=== PATIENT | female | born 1965 | race Caucasian/White ===

== ENCOUNTER 2025-04-24 08:15 | Day surgery (SDC) | payer MEDICARE, OTHER ==
[~2025-04-24] VITALS: Ht 167.6 cm; Wt 73.0 kg
[~2025-04-24 08:15] MED LIST: ALDACTONE25 MG PO; BACLOFEN10 MG PO; IBLOOD GLUCOSE TEST STRIP 1 EA TEST VI PRN; LACTATED RINGER'S 1,000 ML IV SCH; LIDOCAINE HCL 1% 5 ML SDV INJ ONE; LINZESS290 MCG PO; LIPITOR40 MG PO; NITROSTAT0.4 MG SL; OMEPRAZOLE20 MG PO; OXYBUTYNIN CHLOR5 MG PO; PROAIR RESPICL90 MCG INH; PROPRANOLOL HC160 MG PO; TRAZODONE HCL50 MG PO; TRELEGY ELLIPT1 EACH INH
[2025-04-24 08:57] VITALS: BP 127/77
[2025-04-24 09:16] LABS: BASOPHILS 0.4 % (0.1-1.2); EOSINOPHILS 2.1 % (0.7-5.8); LYMPHOCYTES 26.6 % (19.3-51.7); MCH 31.1 PG (25.6-32.2); MCHC 33.4 g/dL (32.2-35.5); MCV 93.2 fL (79.4-94.8); MONOCYTES 7.3 % (4.7-12.5); NEUTROPHILS 63.4 % (34.0-71.1); RBC 4.69 M/uL (3.93-5.22)
[2025-04-24] MEDS ORDERED: LIDOCAINE HCL 2% 5 ML SDV ONE (09:24)
[2025-04-24] MEDS ORDERED: fentaNYL citrate 100 MCG/2 ML VIAL ONE (09:24)
[2025-04-24] MEDS ORDERED: DEXAMETHASONE SOD PHOS 4 MG/ML VIAL ONE (09:24)
[2025-04-24 09:34] LABS: ALT (SGPT) 19.0 U/L (14-59); AST (SGOT) 16.0 U/L (15-37); GLOMERULAR FILTRATION RATE,EST 68.0 mL/min (>60); PROTEIN, TOTAL 7.3 g/dL (6.4-8.2); UREA NITROGEN 14.0 mg/dL (7-18)
[2025-04-24] MEDS ORDERED: LIDOCAINE 1% W/ EPI 1:100,000 20 ML MDV ONE (10:31)
--- NOTE | 2025-04-24 11:15 | NUR ---
04/24/25 1115 Yissel Guan LE 1105: PT ARRIVES TO PACU. REPROT RECEIEVED FROM ACCOUNTING PRACTICE MANAGER AND CHILD NURSE. LE 1106: PT'S ORAL AIRWAY IS REMOVED.
[2025-04-24 11:33] VITALS: BP 128/78
--- NOTE | 2025-04-24 11:37 | NUR ---
PT BACK TO ROOM FROM PACU ON RA. RECEIVED REPORT FROM TRUPTI SAINI. PT IS AWAWE. DENIES PAIN. NO DRAINAGE NOTED. PT DRINKING WATER AND EATING PUDDING. DAUGHTER AT BEDSIDE. NO OTHER NEEDS AT THIS TIME. CALL LIGHT WITHIN REACH.
[2025-04-24 12:28] VITALS: BP 115/71
[2025-04-24] MEDS ORDERED: ACETAMINOPHEN 1,000 MG/100 ML VIAL IV ONE (12:30)
--- NOTE | 2025-04-24 13:51 | NUR ---
LE 1214-PT'S DAUGHTER STATES PT WOULD LIKE TYLENOL D/T PAIN AT THE BRIDGE OF HER NOSE. LE 1216-PHONE CALL TO DR. GAYLE. VERBAL ORDER FOR IV TYLENOL. ORDERS PLACED IN COMPUTER.
--- NOTE | 2025-04-24 13:53 | NUR ---
SAM 1228-PT SITTING UP IN BED AWAKE. RESP EVEN AND UNLABORED. RATES PAIN /. PT STATES SHE WOULD LIKE TO GO HOME. THIS RN STATES IF WE GIVEN THE IV TYLENOL SHE WOULD NEED TO STAY FOR A LITTLE LONGER. PT DECLINES IV TYLENOL. STATES "I WILL JUST TAKE TYLENOL WHEN I GO HOME". PT TO GET DRESSED WITH DAUGHTER IN ROOM.
--- NOTE | 2025-04-24 13:55 | NUR ---
SAM 1240-WENT OVER DISCHARGE INSTRUCTIONS WITH PT. ALL QUESTIONS ANSWERED. PT AMBULATES TO WHEELCHAIR WITH WALKER. RIDE PROVIDED TO FRONT OF HOSPITAL WHERE DAUGHTER WAS WAITING WITH THE CAR.
[2025-04-24] MEDS ORDERED: SEVOFLURANE 250 ML BTL INH ONE (16:02)
--- NOTE | 2025-04-24 22:31 | EKG ---
[facility] [address] [facility] [place] [address] Signed Sinus bradycardia Low voltage QRS Cannot rule out Inferior infarct , age undetermined Abnormal ECG No previous ECGs available Confirmed by Zac Loza MD () on 04/24/2025 10:31:31 PM Electronically Signed By: ZAC LOZA MD 04/24/252230 PATIENT NAME: HOLLY FLETCHER Electrocardiogram DATE OF : 69 PHYSICIAN: ZAC LOZA MD REPORT #: [id number] REPORT IS CONFIDENTIAL AND NOT TO BE RELEASED WITHOUT AUTHORIZATION
--- NOTE | 2025-05-01 11:51 | OR ---
[facility] [address] [place], [place] [address] Signed DATE OF OPERATION: 04/24/2025 SURGEON: Sj Richardson MD PREOPERATIVE DIAGNOSIS: Frontal osteoma. POSTOPERATIVE DIAGNOSIS: Frontal osteoma. PROCEDURE: Excision of frontal osteoma. ANESTHESIA: General LMA, PATTERN MARKING SUPERVISOR, Eleni. PREOPERATIVE HISTORY: Holly is a 59-year-old lady with a bony growth on the forehead. This has been present for several years, enlarging, uncomfortable, very noticeable. She is desiring removal and we are taking her to the OR for that purpose. OPERATIVE PROCEDURE AND FINDINGS: After informed consent, the patient was taken to the operating room, placed in the supine position where general LMA anesthesia was induced. The patient and procedure were verified. The lesion in question was in the midline just above the glabella hard attached to the frontal bone, appeared to be about 1 cm possibly slightly larger bony growth. The forehead and surrounding area was sterilely prepped and draped. The incision was marked in a transverse direction overlying the lesion. 1% lidocaine with epi was injected. The incision was made down to bone and the periosteum elevated off the lesion with an elevator. There appear to be a fairly discrete nodular bone lesion which was removed completely with a chisel. The lesion was sent to pathology in formalin. Bleeding was minimal stopped with needle point cautery. The area beneath the lesion was intact. No communication with the frontal sinus. The confirmation of the bone was smooth afterwards. The incision was then closed with 4-0 interrupted Vicryl muscle layer and subcu. The skin was closed with 5-0 running nylon. The skin was cleansed. Neosporin ointment was applied. The patient was then awakened, extubated, transported to recovery room in good condition. No complications. BLOOD LOSS: Minimal. Electronically Signed By: SJ RICHARDSON MD 05/01/25 1151 PATIENT NAME: HOLLY FLETCHER OPERATIVE REPORT DATE OF : 69 REPORT #: [id number] PHYSICIAN: SJ RICHARDSON MD PCP: LEVY ROBERSON PA-C REPORT IS CONFIDENTIAL AND NOT TO BE RELEASED WITHOUT AUTHORIZATION [address] [address] Signed SPECIMEN: To pathology. DRAINS: No drains. Sj Richardson MD GC/MODL /[id number] Copies: ~ Electronically Signed By: SJ RICHARDSON MD 05/01/25 1151 PATIENT NAME: HOLLY FLETCHER OPERATIVE REPORT DATE OF : 69 REPORT #: [id number] PHYSICIAN: SJ RICHARDSON MD PCP: LEVY ROBERSON PA-C REPORT IS CONFIDENTIAL AND NOT TO BE RELEASED WITHOUT AUTHORIZATION
--- NOTE | 2025-05-07 15:37 | PATH ---
[facility] [address] [facility] [place] [address] Signed SPECIMEN(S): A FRONTAL OSTEOMA OF FOREHEAD SPECIMEN SOURCE: A. FRONTAL OSTEOMA OF FOREHEAD CLINICAL HISTORY: Osteoma lesion of forehead FINAL PATHOLOGIC DIAGNOSIS: Frontal osteoma of forehead: - [facility] bone fragments. - See comment. COMMENT: The histologic features are those of bland bone and are consistent with the clinical history of osteoma. Clinical and radiographic correlation is requested for definitive characterization. JVR:cj MICROSCOPIC EXAMINATION: Histologic sections of all submitted blocks are examined by light microscopy. These findings, together with the gross examination, support the pathologic diagnosis. GROSS DESCRIPTION: The specimen, labeled and designated "Marino, frontal osteoma forehead," is received in formalin and consists of multiple irregular shaped pink-acosta bone tissue fragments that aggregate measure 2.5 x 1.7 x 0.3 cm. Specimen is left for decalcification in Immunocal prior to processing. Entirely submitted in (A1). JS (under the direct supervision of a pathologist) The Gross Description was prepared using a voice recognition system. The report was reviewed for accuracy; however, sound-alike word errors, addition and/or deletions may occur. If there is any question about this report, please contact Client Services. PERFORMING LABORATORY: Technical component was performed by [facility], [address] [place] [id number] (CLIA# [id number]). Professional interpretation was performed by [facility], [address] [place] [address], [place] [address] (CLIA#: [id number]). PATIENT NAME: HOLLY FLETCHER PATHOLOGY DATE OF : 69 REPORT #: [id number] PHYSICIAN: [facility] PCP: LEVY ROBERSON PA-C REPORT IS CONFIDENTIAL AND NOT TO BE RELEASED WITHOUT AUTHORIZATION [address] [place] [address] Signed Diagnostician: Anson Aguirre MD Pathologist Electronically Signed 05/07/2025 Copies: ~ PATIENT NAME: HOLLY FLETCHER PATHOLOGY DATE OF : 69 REPORT #: [id number] PHYSICIAN: [facility] PCP: LEVY ROBERSON PA-C REPORT IS CONFIDENTIAL AND NOT TO BE RELEASED WITHOUT AUTHORIZATION
== END 2025-04-24 12:36 | disposition home or self-care (01) ==
LOC: DS 08:15
PROVIDERS: Nurse Anesthetist, Certified Registered; ATTEND Otolaryngology
PROC: 0NB10ZZ Excision of Frontal Bone, Open Approach (ICD-10-PCS; principal; 2025-04-24 10:00)
DX: D16.4 Benign neoplasm of bones of skull and face (principal); J44.9 Chronic obstructive pulmonary disease, unspecified; I10 Essential (primary) hypertension; E78.00 Pure hypercholesterolemia, unspecified; I25.2 Old myocardial infarction; F17.290 Nicotine dependence, other tobacco product, uncomplicated; Z86.73 Personal history of transient ischemic attack (TIA), and cerebral infarction without residual deficits; Z79.899 Other long term (current) drug therapy; Z90.49 Acquired absence of other specified parts of digestive tract; Z90.710 Acquired absence of both cervix and uterus
CPT/HCPCS: 00190; 36415; 71046; 80053; 85025; 88304; 88311; 93005; 93010; J1100; J2003; J2405; J2704; J3010